=== PATIENT | female | born 1990 | race Native Hawaiian/Other Pacific Islander ===

== ENCOUNTER 2018-03-24 15:23 | Emergency (ER) | payer OTHER ==
[~2018-03-24] VITALS: Ht 162.6 cm; Wt 95.3 kg
[2018-03-24 15:40] VITALS: TEMP 97.7
[2018-03-24 16:43] LABS: PLATELET COUNT 320 K/uL (152-353)
[2018-03-24 16:51] LABS: POTASSIUM 3.8 mmol/L (3.6-5.2)
[2018-03-24 19:42] VITALS: BP 118/78
== END 2018-03-24 19:43 | disposition home or self-care (01) ==
LOC: ED 15:23
PROVIDERS: Family Medicine
DX: K57.92 Diverticulitis of intestine, part unspecified, without perforation or abscess without bleeding (principal); R16.0 Hepatomegaly, not elsewhere classified
CPT/HCPCS: 36415; 80053; 85027; 99283; J1885